=== PATIENT | male | born 1985 | race Caucasian/White ===

== ENCOUNTER 2017-11-06 14:03 | Inpatient (IN) | payer BC ==
[~2017-11-06] VITALS: Ht 185.4 cm; Wt 119.1 kg
--- NOTE | ~2017-11-06 | WRIGHTHP ---
[place], [place] PATIENT HISTORY AND PHYSICAL EXAM NAME: [id number] UNIT #: [id number] ROOM: 424 DOCTOR: SARA REDDY MD BIRTHDATE: [birth year] DOS: 11/06/2017 HISTORY OF PRESENT ILLNESS: The patient is 32 years old. The patient states that last , [place] was [place]. On Sunday, he noticed that he was tired and started having a fever and on Sunday night, the fever was extremely high, about 104. Because of his previous history of leukemia, his took him to [facility] where he was evaluated and blood work was normal and he was sent home. He continued to have a fever on Sunday and so he decided to come into the office on Sunday. His temperature at that time was 104. He has diffuse aches and pains and just generalized weakness and tiredness, but does not have any abdominal pain, nausea, emesis. Does not have any chest pains or palpitations. Does not have any cough or sputum production. Does not have any diarrhea or urinary symptoms. PAST MEDICAL HISTORY: Significant for history of acute lymphocytic leukemia, status post bone marrow transplant. This was when he was 16. MEDICATIONS: He does not take any medicine. He works as a physical therapist. SOCIAL HISTORY: Does not smoke, does not use any alcohol. Lives at home with his , does not have any children. PHYSICAL EXAMINATION: GENERAL: He is awake and alert and oriented. Face is pretty gaurang looking. VITAL SIGNS: Graphic trend shows a temperature of 102, pulse of 95, respirations 20, blood pressure 133/73. LUNGS: Diminished breath sounds. HEART: Regular. No meningeal signs. ABDOMEN: Obese, soft, nontender. EXTREMITIES: Without any edema. A large rash noticed on the buttock area, which appears to be erythema migrans of Lyme disease. ASSESSMENT AND PLAN: 1. The patient who presents with fever, erythema migrans rash, possibly has underlying Lyme disease. He is out in the [place] a lot. The patient is placed on doxycycline. Infectious Disease was consulted. Lyme titer was sent. 2. History of leukemia. There is no evidence of any reoccurrence, but abnormal LFTs were noted along with an elevated CRP. So, we will go ahead and arrange for hepatitis profile, ultrasound of the abdomen and a Monospot along with EBV titers. We will discuss with Dr. Pettit. [place], [place] PATIENT HISTORY AND PHYSICAL EXAM NAME: BAY KENT JR UNIT #: [id number] ROOM: [facility] DOCTOR: SARA REDYD MD BIRTHDATE: [birth year] SARA REDDY MD CM:HISPHYS:PATIENT HISTORY AND PHYSICAL EXAMINATION [id number] SARA REDDY MD 11/14/17 1143 interface
--- NOTE | ~2017-11-06 | DS ---
[place], [place] DISCHARGE SUMMARY [id number] UNIT #: [id number] ROOM: 424 DOCTOR: SARA REDDY MD BIRTHDATE: [birth year] DOS: 11/08/2017 DIAGNOSES: 1. Lyme disease. 2. Abnormal LFTs with hepatic steatosis. 3. History of ALL status post bone marrow transplant. HOSPITAL COURSE: This patient is 32 years old, very well known, comes in with complaints of high grade fever. He started having the fever last Sunday. He went to the emergency room at [facility] on Sunday because of temperature of 104. He was told that his blood work was all normal and he was sent home, continued to spike high-grade fevers on Sunday and Sunday, so he decided to come into the office on Sunday afternoon. At that time, he had noticed a rash on his upper thigh and the hip area. This was very red, raised and a bull's-eye like rash and he was suspicious of Lyme disease. He does go out in [place], fishing, hiking. Once he was seen in the office, he was found to continue to have high grade fever. He also complained of diffuse aches and pains, myalgias, arthralgias and he was admitted to the hospital. After admission, he was placed on IV doxycycline. Dr. Pettit was consulted, who added Rocephin. Labs were normal except for the CRP which is pretty elevated and abnormal LFTs were noticed. The patient had an ultrasound of the abdomen, which showed hepatic steatosis. Today's labs, CRP and liver enzymes etc. not available yet. Once we have the labs, we should be able to discharge him to home since his fevers have completely resolved in the last 24 hours and the patient has remained stable and his symptoms have resolved. The rash is also much less red and prominent. On November 08, the patient will be discharged on doxycycline 100 b.i.d. I have given him 60 pills and we will follow up as an office. SARA REDDY MD CM:[place] 0 [phone] SARA REDDY MD 11/14/17 1143 interface
--- NOTE | ~2017-11-06 | PR ---
[place], [place] PROGRESS NOTE NAME: BAY KENT JR UNIT #: [id number] ROOM: 424 DOCTOR: SARA REDDY MD BIRTHDATE: [birth year] DOS: 11/08/2017 SUBJECTIVE: The patient is doing fine without any complaint. Denies any chest pains, palpitations or shortness of breath. OBJECTIVE: VITAL SIGNS: Graphic trend shows pressure 127/81, pulse of 60, respirations 20, temperature 98.2. LUNGS: Diminished breath sounds, clear. HEART: Regular. ABDOMEN: Soft. EXTREMITIES: Without any edema. ASSESSMENT AND PLAN: 1. The patient with Lyme disease. Lyme titer is not back, but the fevers have been resolved for almost 24 hours now. The patient does not have any arrhythmias and his arthralgias and myalgias have improved after the Toradol was given. This morning, I do not have any labs yet, but once we have the labs, the patient should be able to go home. 2. Abnormal LFTs, most likely from the Lyme. Hepatic steatosis was noticed on the ultrasound of the abdomen and he is aware of the fact that he should lose weight. SARA REDDY MD CM:ISABEL [id number] SARA REDDY MD 11/08/17 1358 interface
[2017-11-06 14:00] VITALS: BP 130/78
[2017-11-06 14:30] VITALS: BP 130/78
[2017-11-06 15:48] LABS: BASO % 0.5 % (0.0-1.0); HEMATOCRIT 43.1 % (42.0-52.0); HEMOGLOBIN 14.3 g/dl (14.0-18.0); LYMPH # 0.8 10*3/uL (1.3-4.4); LYMPH % 12.3 % (27.0-41.0); MEAN CELL VOLUME 94.9 fl (80.0-94.0); MEAN CORPUSCULAR HGB 31.5 pg (27.0-31.0); MEAN CORPUSCULAR HGB CONC 33.2 g/dl (33.0-37.0); MEAN PLATELET VOLUME 9.5 fl (9.6-12.3); MONO # 0.4 10*3/uL (0.1-1.0); MONO % 6.2 % (3.0-9.0); NEUT # 5.3 10*3/uL (2.3-7.9); NEUT % 80.2 % (47.0-73.0); PLATELET COUNT AUTOMATED 185 10*3/uL (130-400); RED BLOOD COUNT 4.54 10*6/uL (4.50-5.90); RED CELL DISTRI WIDTH 13.5 % (0-14.5); WHITE BLOOD COUNT 6.6 10*3/uL (4.8-10.8)
[2017-11-06 16:00] VITALS: BP 119/76
[2017-11-06 16:18] LABS: ALBUMIN 3.2 gm/dl (3.1-4.5); ALKALINE PHOSPHATASE 138 U/L (45-117); BUN 12 mg/dl (7-24); CHLORIDE 104 mmol/L (98-107); CREATININE 1.23 mg/dL (0.70-1.30); SGOT/AST 100 IU/L (3-35); SGPT/ALT 125 U/L (12-78); SODIUM 138 mmol/L (136-145)
[2017-11-06 16:21] LABS: TOTAL PROTEIN 7.7 gm/dL (6.4-8.2)
[2017-11-06 20:00] VITALS: BP 132/88
[2017-11-07] VITALS: BP 133/73
[2017-11-07 08:00] VITALS: BP 130/74
[2017-11-07 12:00] VITALS: BP 116/73
[2017-11-07 16:00] VITALS: BP 120/80
[2017-11-07 20:00] VITALS: BP 126/85
[2017-11-08 00:17] VITALS: BP 127/81
[2017-11-08] MEDS ORDERED: DOXYCYCLINE100 MG PO (07:04)
[2017-11-08 07:18] LABS: BASO % 0.7 % (0.0-1.0); EOS # 0.1 10*3/uL (0.0-0.4); EOS % 1.2 % (1.0-4.0); HEMATOCRIT 41.2 % (42.0-52.0); HEMOGLOBIN 13.5 g/dl (14.0-18.0); LYMPH # 2.1 10*3/uL (1.3-4.4); LYMPH % 36.1 % (27.0-41.0); MEAN CELL VOLUME 96.3 fl (80.0-94.0); MEAN CORPUSCULAR HGB 31.5 pg (27.0-31.0); MEAN CORPUSCULAR HGB CONC 32.8 g/dl (33.0-37.0); MEAN PLATELET VOLUME 9.6 fl (9.6-12.3); MONO # 0.5 10*3/uL (0.1-1.0); MONO % 7.8 % (3.0-9.0); NEUT # 3.1 10*3/uL (2.3-7.9); NEUT % 53.3 % (47.0-73.0); PLATELET COUNT AUTOMATED 205 10*3/uL (130-400); RED BLOOD COUNT 4.28 10*6/uL (4.50-5.90); RED CELL DISTRI WIDTH 13.5 % (0-14.5); WHITE BLOOD COUNT 5.8 10*3/uL (4.8-10.8)
[2017-11-08 07:43] LABS: ALBUMIN 2.7 gm/dl (3.1-4.5); ALKALINE PHOSPHATASE 128 U/L (45-117); BUN 15 mg/dl (7-24); CHLORIDE 105 mmol/L (98-107); CREATININE 0.97 mg/dL (0.70-1.30); POTASSIUM 3.9 mmol/L (3.5-5.1); SGOT/AST 71 IU/L (3-35); SGPT/ALT 104 U/L (12-78); SODIUM 139 mmol/L (136-145)
[2017-11-08 08:00] VITALS: BP 121/90
[2017-11-08 10:04] LABS: HEPATITIS B SURFACE AG Negative (Negative); HEPATITIS C VIRUS ANTIBODY <0.1 s/co (0.0-0.9)
[2017-11-08 12:00] VITALS: BP 123/85
[2017-11-08 16:08] VITALS: BP 122/89
== END 2017-11-08 16:47 | disposition home or self-care (01) | DRG 868 ==
LOC: 4E 14:03
PROVIDERS: Internal Medicine
DX: A69.20 Lyme disease, unspecified (principal); Z94.81 Bone marrow transplant status; K76.0 Fatty (change of) liver, not elsewhere classified; Z88.1 Allergy status to other antibiotic agents; Z88.0 Allergy status to penicillin; Z85.6 Personal history of leukemia

== ENCOUNTER → 2020-04-15 | Outpatient (CLI) | payer BC ==
[~2020-04-15] MED LIST: DOXYCYCLINE100 MG PO
== END | disposition home or self-care (01) ==
LOC: NM 11:00
PROVIDERS: ATTEND Internal Medicine
DX: R74.01 Elevation of levels of liver transaminase levels (principal)

== ENCOUNTER → 2021-05-02 | Outpatient (CLI) | payer OTHER | END | disposition home or self-care (01) | LOC: CARD 08:58 | PROVIDERS: ATTEND Internal Medicine | DX: R06.02 Shortness of breath (principal) ==